=== PATIENT | female | born 1950 | race Asian ===

== ENCOUNTER 2018-11-29 07:00 | Day surgery (SDC) | payer OTHER ==
[~2018-11-29] VITALS: Ht 152.4 cm; Wt 63.5 kg
[~2018-11-29 07:00] MED LIST: SODIUM CHLORIDE 0.9% 1000ML 1,000 ML IV ONE
[2018-11-29 08:15] VITALS: BP 113/31
[2018-11-29] MEDS ORDERED: PROPOFOL 10 MG/ML 20ML VIAL IV ONE (10:24)
[2018-11-29 10:28] VITALS: BP 103/51
[2018-11-29 10:33] VITALS: BP 103/48
[2018-11-29 10:38] VITALS: BP 104/59
[2018-11-29 10:43] VITALS: BP 112/58
[2018-11-29 10:55] VITALS: BP 112/55
== END 2018-11-29 11:01 | disposition home or self-care (01) ==
LOC: ENDO 07:00 → DAH 07:00 → ENDO 11:01
PROVIDERS: ATTEND Internal Medicine
DX: Z12.11 Encounter for screening for malignant neoplasm of colon (principal); D12.0 Benign neoplasm of cecum; K57.30 Diverticulosis of large intestine without perforation or abscess without bleeding; K73.1 Chronic lobular hepatitis, not elsewhere classified; E11.9 Type 2 diabetes mellitus without complications; I10 Essential (primary) hypertension; E78.5 Hyperlipidemia, unspecified; E03.9 Hypothyroidism, unspecified; Z79.899 Other long term (current) drug therapy; Z90.710 Acquired absence of both cervix and uterus; Z83.3 Family history of diabetes mellitus
CPT/HCPCS: 45381; 45385; 82948 ×2; 88305; 93005; A4606; J2704; J7030